=== PATIENT | male | born 1960 | race Two or more races ===

== ENCOUNTER 2016-10-01 14:10 | Emergency (ER) | payer OTHER ==
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
[2016-10-01] MEDS ORDERED: IBUPROFEN 800 MG TABLET PO ONE (15:51)
[2016-10-01 16:36] VITALS: BP 138/83
== END 2016-10-01 16:34 | disposition home or self-care (01) ==
LOC: ER 14:10
DX: S16.1XXA Strain of muscle, fascia and tendon at neck level, initial encounter (principal); V49.9XXA Car occupant (driver) (passenger) injured in unspecified traffic accident, initial encounter; R09.89 Other specified symptoms and signs involving the circulatory and respiratory systems; R03.0 Elevated blood-pressure reading, without diagnosis of hypertension
CPT/HCPCS: 71020; 72125; 99284